=== PATIENT | female | born 1990 | race Caucasian/White ===

== ENCOUNTER 2016-08-26 17:25 | Emergency (ER) | payer BC | END 2016-08-26 20:22 | disposition home or self-care (01) | LOC: ER 17:25 | DX: R20.9 Unspecified disturbances of skin sensation (principal); W86.0XXA Exposure to domestic wiring and appliances, initial encounter; Y93.E9 Activity, other interior property and clothing maintenance; Y92.010 Kitchen of single-family (private) house as the place of occurrence of the external cause | CPT/HCPCS: 36415; 80053; 82550; 85025 ==